=== PATIENT | female | born 1995 | race Caucasian/White ===

== ENCOUNTER 2023-04-24 11:03 | Outpatient (CLI) | payer OTHER, SELFPAY ==
--- NOTE | ~2023-04-24 | XR_ITS ---
EXAMINATION: DATE: 04/24/2023 12:48 INDICATION: Infertility testing TECHNIQUE: Multiple fluoroscopic images were obtained during contrast infusion into the endometrial c anal of the uterus by the primary physician. Fluoroscopy exposure time was 2.8 minutes. 3 fluoroscopi c images were recorded. Total DAP was 5.952 Gycm^2 FINDINGS: The uterine cavity demonstrates normal morphology. The right fallopian tubes and does not appear dil ated although assessment is limited by the rapid spillage of contrast which obscures the tube on the initial image. There is progressive spillage of contrast from the right fallopian tube. A patent left fallopian tube was unable to be demonstrated. IMPRESSION: 1. Patent right fallopian tube with no evident contrast opacification of the left fallopian tube whic h is likely occluded. Reviewed, dictated and finalized at location A. IMPRESSION: 1. Patent right fallopian tube with no evident contrast opacification of the le ft fallopian tube which is likely occluded.
[2023-04-24 12:10] LABS: Beta HCG Quantitative < 2.39 mIU/ML
== END 2023-04-24 11:04 | disposition home or self-care (01) ==
PROVIDERS: PCP Family Medicine Adolescent Medicine; Visit Provider Obstetrics & Gynecology Gynecology
DX: N97.9 Female infertility, unspecified (principal)
CPT/HCPCS: 36415; 58340; 74740; 84702